=== PATIENT | female | born 1995 | race African-American/Black ===

== ENCOUNTER 2017-07-12 03:42 | Emergency (ER) | payer SELFPAY ==
[2017-07-12] MEDS: LORAZEPAM 2 MG INJ IV (04:39)
[2017-07-12] MEDS: SOD CHLORIDE 0.9% 1,000 ML IV (04:40)
== END 2017-07-12 05:30 | disposition home or self-care (01) ==
LOC: FTE 03:42
DX: F12.10 Cannabis abuse, uncomplicated (principal)
CPT/HCPCS: 96374; 99284-25; J2060